=== PATIENT | female | born 1975 | race Caucasian/White ===

== ENCOUNTER 2019-11-09 07:58 | Day surgery (SDC) | payer BC, SELFPAY ==
[~2019-11-09] VITALS: Ht 162.6 cm; Wt 73.5 kg
[2019-11-09 08:54] LABS: BASOPHILS # (AUTO) 0.1 K/uL (0.00-0.22); BASOPHILS % (AUTO) 0.8 % (0.0-2.0); EOSINOPHILS # (AUTO) 0.2 K/uL (0-0.4); HEMATOCRIT 36.7 % (36-48); HEMOGLOBIN 12.2 g/dL (12.0-16.0); LYMPHOCYTES # (AUTO) 1.5 K/uL (2.5-16.5); LYMPHOCYTES % (AUTO) 22.6 % (20.5-51.1); MEAN CORPUSCULAR HEMOGLOBIN 30 pg (27-31); MEAN CORPUSCULAR HGB CONC 33 g/dL (33-37); MEAN CORPUSCULAR VOLUME 89.2 fL (80-94); MONOCYTES # (AUTO) 0.5 K/uL (0.8-1.0); MONOCYTES % (AUTO) 6.9 % (1.7-9.3); NEUTROPHILS # (AUTO) 4.4 K/uL (1.8-7.7); NEUTROPHILS % (AUTO) 66.7 % (42.2-75.2); PLATELET COUNT (AUTO) 246 K/uL (140-450); RED BLOOD CELL COUNT(AUTO) 4.11 MIL/uL (4.20-5.40); RED CELL DISTRIBUTION WIDTH 13.4 % (11.6-13.7); WHITE BLOOD COUNT (AUTO) 6.6 K/uL (4.8-10.8)
[2019-11-09 09:04] LABS: ANION GAP 12.3 (8-16); CARBON DIOXIDE 24.2 mmol/L (21-32); CREATININE 0.7 mg/dL (0.6-1.3); POTASSIUM 3.5 mmol/L (3.5-5.1)
[2019-11-09 09:16] LABS: ALBUMIN 3.4 g/dL (3.4-5.0); TOTAL BILIRUBIN 0.4 mg/dL (0.0-1.0)
[2019-11-09] MEDS ORDERED: LIDOCAINE 1% 500 MG/50 ML VIAL ONE (10:04)
[2019-11-09] MEDS ORDERED: BUPIVACAINE-MPF 0.25% 30 ML VIAL INJ ONE (10:04)
[2019-11-09] MEDS ORDERED: DEXAMETHASONE 4 MG/ML VIAL ONE (10:36)
[2019-11-09] MEDS ORDERED: PROPOFOL 200 MG/20 ML VIAL IV ONE (10:36)
[2019-11-09] MEDS ORDERED: KETOROLAC 30 MG/ML VIAL ONE (10:36)
[2019-11-09] MEDS ORDERED: DESFLURANE 240 ML BTL INH ONE (10:36)
[2019-11-09] MEDS ORDERED: ONDANSETRON 4 MG/2 ML VIAL ONE (10:36)
[2019-11-09] MEDS ORDERED: fentaNYL 0.05 MG/ML VIAL ONE (10:36)
[2019-11-09] MEDS ORDERED: MORPHINE SULFATE 4 MG/ML SYR IV PRN (11:45)
[2019-11-09] MEDS ORDERED: HYDROcodone/APAP 5/325 MG 1 TAB TAB PO PRN (11:45)
[2019-11-09] MEDS ORDERED: HYDROmorphone 1 MG/ML AMP IVP PRN (11:45)
[2019-11-09] MEDS ORDERED: ONDANSETRON 4 MG/2 ML VIAL IV PRN (11:45)
[2019-11-09] MEDS ORDERED: MORPHINE SULFATE 2 MG/ML SYR IVP PRN (11:45)
== END 2019-11-09 13:15 | disposition home or self-care (01) ==
LOC: MDS 07:58 → MMU 07:59 → MDS 13:15
PROVIDERS: ATTEND Surgery
DX: D24.2 Benign neoplasm of left breast (principal); I10 Essential (primary) hypertension
CPT/HCPCS: 19120; 36415; 71045; 80053; 81025; 85025; 88307; 93005; J0690; J1100; J1885; J2001; J2405; J2704; J3010; J3490; J7060; J7120; Q0092